=== PATIENT | female | born 1980 | race Caucasian/White ===

== ENCOUNTER 2020-06-03 22:19 | Emergency (ER) | payer MEDICAID ==
[~2020-06-03] VITALS: Ht 180.3 cm; Wt 77.2 kg
[2020-06-03 22:26] VITALS: BP 162/98
== END 2020-06-03 23:04 | disposition home or self-care (01) ==
LOC: ER 22:20
DX: R50.9 Fever, unspecified (principal); K08.89 Other specified disorders of teeth and supporting structures
CPT/HCPCS: 36415; 99282

== ENCOUNTER 2021-01-27 17:30 | Emergency (ER) | payer MEDICAID ==
[~2021-01-27] VITALS: Ht 180.3 cm; Wt 77.3 kg
[2021-01-27 18:17] LABS: BASOPHILS % (AUTO) 0.6 % (0-1); EOSINOPHILS % (AUTO) 0.6 % (0-6); HEMATOCRIT 40.5 % (35.0-45.0); LYMPHOCYTES # (AUTO) 0.4 X10'3 (1.1-4.8); LYMPHOCYTES % (AUTO) 4.7 % (21-51); MEAN CORPUSCULAR HEMOGLOBIN 33.2 PG (27.0-31.0); MEAN CORPUSCULAR HGB CONC 34.6 g/dL (33.0-36.5); MEAN CORPUSCULAR VOLUME 95.9 FL (78-98); MONOCYTES # (AUTO) 0.5 X10'3 (0-0.9); NEUTROPHILS # (AUTO) 7.4 X10'3 (1.8-7.7); NEUTROPHILS % (AUTO) 88.1 % (42-75); PLATELET COUNT 194 X10'3 (140-440); RED BLOOD COUNT 4.22 X10'6 (4.20-5.60); RED CELL DISTRIBUTION WIDTH 12.3 % (11.5-14.5); WHITE BLOOD COUNT 8.4 X10'3 (4.5-11.0)
[2021-01-27 18:28] LABS: ALANINE AMINOTRANSFERASE 93 U/L (12-78); ALBUMIN 3.4 G/DL (3.4-5.0); ALBUMIN/GLOBULIN RATIO 0.9 (1.1-1.5); ALKALINE PHOSPHATASE 112 IU/L (46-116); ANION GAP 12 (8-16); ASPARTATE AMINO TRANSFERASE 45 U/L (10-37); BILIRUBIN,TOTAL 0.6 MG/DL (0.1-1.0); BLOOD UREA NITROGEN 9 MG/DL (7-18); BUN/CREATININE RATIO 11.7 (6.6-38.0); CALCIUM 8.1 MG/DL (8.5-10.1); CHLORIDE 101 MMOL/L (99-107); CREATININE 0.77 MG/DL (0.40-0.90); GLUCOSE 163 MG/DL (70-104); POTASSIUM 3.5 MMOL/L (3.5-5.1); SODIUM 136 MMOL/L (135-145); TOTAL CARBON DIOXIDE 22.6 MMOL/L (24-32); TOTAL PROTEIN 7.2 G/DL (6.4-8.2); eGFR 84 ML/MIN
[2021-01-27 18:42] VITALS: BP 143/87
[2021-01-27 19:06] LABS: URINE HCG NEGATIVE (NEG)
[2021-01-27 19:47] LABS: CLARITY,URINE CLEAR (Clear); COLOR,URINE YELLOW (Yellow); GLUCOSE, URINE NEGATIVE (Neg); KETONES,URINE NEGATIVE (Neg); LEUKOCYTE ESTERASE ,URINE NEGATIVE (Neg); NITRITES, URINE NEGATIVE (Neg); OCCULT BLOOD,URINE NEGATIVE (Neg); PROTEIN,URINE NEGATIVE (Neg); UA COLLECTION TYPE CLN CATCH MIDSTREAM; UROBILINOGEN,URINE 0.2 E.U/dL (0.2-1.0)
[2021-01-27] MEDS ORDERED: ACET-1025 PO (20:01)
== END 2021-01-27 20:13 | disposition home or self-care (01) ==
LOC: ER 17:31
DX: R10.2 Pelvic and perineal pain (principal); R30.0 Dysuria; R10.30 Lower abdominal pain, unspecified; Z87.440 Personal history of urinary (tract) infections; Z79.899 Other long term (current) drug therapy
CPT/HCPCS: 36415; 80053; 81003; 81025; 83880; 85025; 93005; 99284

== ENCOUNTER 2022-06-30 07:20 | Emergency (ER) | payer MEDICAID | END 2022-06-30 09:57 | disposition left against medical advice (07) | LOC: ER 07:20 | DX: Z00.8 Encounter for other general examination (principal); Z53.21 Procedure and treatment not carried out due to patient leaving prior to being seen by health care provider ==

== ENCOUNTER 2024-02-28 16:15 | Emergency (ER) | payer MEDICAID ==
[~2024-02-28] VITALS: Ht 180.3 cm; Wt 92.3 kg
[2024-02-28 16:50] VITALS: BP 159/99; PULSE 90
[2024-02-28 17:26] LABS: BASOPHILS # (AUTO) 0.1 X10'3 (0-0.2); BASOPHILS % (AUTO) 0.5 % (0-1); EOSINOPHILS # (AUTO) 0.2 X10'3 (0-0.9); EOSINOPHILS % (AUTO) 1.8 % (0-6); HEMATOCRIT 41.6 % (35.0-45.0); HEMOGLOBIN 14.4 g/dl (12.0-16.0); LYMPHOCYTES # (AUTO) 1.4 X10'3 (1.1-4.8); LYMPHOCYTES % (AUTO) 11.3 % (21-51); MEAN CORPUSCULAR HEMOGLOBIN 33.5 PG (27.0-31.0); MEAN CORPUSCULAR HGB CONC 34.7 g/dL (33.0-36.5); MEAN CORPUSCULAR VOLUME 96.5 FL (78-98); MEAN PLATELET VOLUME 9.6 FL (7.4-10.4); MONOCYTES # (AUTO) 0.8 X10'3 (0-0.9); MONOCYTES % (AUTO) 6.4 % (2-12); NEUTROPHILS # (AUTO) 9.9 X10'3 (1.8-7.7); PLATELET COUNT 198 X10'3 (140-440); RED BLOOD COUNT 4.31 X10'6 (4.20-5.60); RED CELL DISTRIBUTION WIDTH 12.8 % (11.5-14.5); WHITE BLOOD COUNT 12.4 X10'3 (4.5-11.0)
[2024-02-28 17:40] LABS: ALANINE AMINOTRANSFERASE 71 U/L (12-78); ALBUMIN 3.4 G/DL (3.4-5.0); ALBUMIN/GLOBULIN RATIO 0.7 (1.1-1.5); ALKALINE PHOSPHATASE 74 IU/L (46-116); ANION GAP 6 (8-16); ASPARTATE AMINO TRANSFERASE 37 U/L (10-37); BILIRUBIN,TOTAL 0.6 MG/DL (0.1-1.0); BLOOD UREA NITROGEN 11 MG/DL (7-18); BUN/CREATININE RATIO 15.9 (10.0-20.0); CALCIUM 8.5 MG/DL (8.5-10.1); CHLORIDE 105 MMOL/L (99-107); CREATININE 0.69 MG/DL (0.40-0.90); GLUCOSE 109 MG/DL (70-104); POTASSIUM 4.3 MMOL/L (3.5-5.1); SODIUM 139 MMOL/L (135-145); eCRCL 120 ML/MIN; eGFR > 90 ML/MIN
[2024-02-28 17:47] LABS: PRO BRAIN NATRIURETIC PEPTIDE 305 PG/ML (0-125)
[2024-02-28] MEDS ORDERED: AZIT-164 PO (18:34)
[2024-02-28] MEDS ORDERED: ondansetron 4mg rapidly disintigrating tab PO ONE (18:50)
[2024-02-28] MEDS: azithromycin 250mg tablet PO ONE (18:51)
[2024-02-28 18:56] VITALS: RESP 16; O2SAT 96
== END 2024-02-28 18:59 | disposition home or self-care (01) ==
LOC: ER 16:16
DX: J18.9 Pneumonia, unspecified organism (principal); R07.9 Chest pain, unspecified; R05.9 Cough, unspecified; R50.9 Fever, unspecified; R07.81 Pleurodynia
CPT/HCPCS: 36415; 71045; 80053; 83880; 84484; 85025; 87502; 87503; 93005; 99285

== ENCOUNTER 2024-07-03 18:06 | Emergency (ER) | payer MEDICAID ==
[~2024-07-03] VITALS: Ht 180.3 cm; Wt 91.4 kg
[2024-07-03] MEDS: dexamethasone sod phosphate 10mg/ml inj IM STA (21:55)
[2024-07-03] MEDS ORDERED: HYDR-3686 PO (21:56)
[2024-07-03] MEDS ORDERED: NEOM10SO7 RIGHT EAR (21:56)
[2024-07-03] MEDS ORDERED: PRED20TA PO (21:56)
[2024-07-03 22:06] VITALS: BP 165/99; PULSE 99; RESP 18; TEMP 98.6; O2SAT 99
== END 2024-07-03 22:07 | disposition home or self-care (01) ==
LOC: ER 18:07
DX: L23.7 Allergic contact dermatitis due to plants, except food (principal); H60.91 Unspecified otitis externa, right ear
CPT/HCPCS: 96372; 99283; J1100